=== PATIENT | male | born 1965 | race Two or more races ===

== ENCOUNTER 2016-11-10 04:15 | Emergency (ER) | payer MEDICAID ==
[~2016-11-10] VITALS: Ht 170.2 cm; Wt 83.9 kg
[2016-11-10] MEDS ORDERED: UNOBMED (04:18)
[2016-11-10 04:22] VITALS: BP 111/66
--- NOTE | 2016-11-10 04:23 | Emergency Room Report ---
History of Present Illness General Chief Complaint: Alcohol Intoxication Source: Patient, EMS Present Illness HPI Patient was brought in by paramedics for altered mental status [place] essentially unresponsive and sleeping heavily Patient himself is unable to provide any input Fairly somnolent Responsive to physical stimuli by moaning however not verbally responsive No reports of any trauma at the scene as far as any blood or other trauma In the history of present illness remains significantly limited Allergies: Coded Allergies: UNABLE TO ASSESS (Unverified , 11/10/16) Patient History Limited by: medical condition Past Medical History: see triage record Pertinent Family History: none Reviewed Nursing Documentation: PMH: Agreed, PSxH: Agreed Nursing Documentation-PMH Past Medical History Deferred: Pt Cognitively Impaired Review of Systems All Other Systems: limited - Other than the ones mentioned in the history of present illness all others are reviewed however they do stay limited due to the patient's mental status Physical Exam Vital Signs Date Time Temp Pulse Resp B/P Pulse Ox O2 Delivery O2 Flow Rate FiO2 11/10/16 04:12 99.1 69 14 111/66 97 Room Air Sp02 EP Interpretation: reviewed, normal General Appearance: no apparent distress Head: normocephalic, atraumatic Eyes: bilateral eye EOMI, bilateral eye PERRL ENT: hearing grossly normal, normal pharynx, TMs + canals normal, uvula midline Neck: full range of motion, supple, no meningismus, no bony tend Respiratory: lungs clear, normal breath sounds, no rhonchi, no respiratory distress, no retraction, no accessory muscle use Cardiovascular #1: normal peripheral pulses, regular rate, rhythm, no edema, no gallop, no JVD, no murmur Gastrointestinal: normal bowel sounds, non tender, soft, no mass, no organomegaly, non-distended, no guarding, no hernia, no pulsatile mass, no rebound Genitourinary: no CVA tenderness Musculoskeletal: other - Patient does not follow commands, does withdraw from physical stimuli Neurologic: responsive, sensory intact Psychiatric: mood/affect normal Skin: normal color, no rash, warm/dry, palpation normal Lymphatic: normal inspection, no adenopathy Medical Decision Making Diagnostic Impression: Primary Impression: Alcohol abuse ER Course Patient did well throughout his stay in the emergency room rested comfortably there was no signs of any active nausea or vomiting Further IV intervention was not performed CT head was obtained as the patient had been initially altered Which was negative and the patient pending further sobering and dc home when more appropriate CT/MRI/US Diagnostic Results CT/MRI/US Diagnostic Results : Impression CT head: no acute disease Last Vital Signs Date Time Temp Pulse Resp B/P Pulse Ox O2 Delivery O2 Flow Rate FiO2 11/10/16 04:12 99.1 69 14 111/66 97 Room Air Status: improved Disposition: HOME, SELF-CARE Condition: Improved Additional Instructions: Patient is provided with the discharge instructions notified to follow up with primary doctor in the next 2-3 days otherwise return to the er with any worsening symptoms. LICO VALLEJO D.O. Nov 10, 2016 04:23
[2016-11-10 06:25] VITALS: BP 115/64
--- NOTE | 2016-11-10 09:15 | Diagnostic Imaging Report ---
Indication: Altered mental status Technique: Continuous helical CT scanning of the head was performed without intravenous contrast material. Axial and coronal 5 mm sections were generated. Radiation dose was minimized using automated exposure control Dose: Total Dose Length Product - DLP [address] Dose Index - CTDIvol(s) 70.38 mGy. Comparison: None Findings: The ventricular system is normal in size and configuration. There is no shift of midline structures. No abnormal extra-axial fluid collections are noted. There is no evidence of intracerebral bleeding. No other abnormal high or low density areas are noted within the brain. There is bilateral maxillary sinus mucosal disease evidence of left optic globe and right cataract surgery. Impression: Negative for acute intracranial bleed or mass effect Sinus disease This agrees with the preliminary interpretation provided overnight by [facility]. The CT scanner at [facility] is accredited by the [employer] and the scans are performed using protocols designed to limit radiation exposure to as low as reasonably achievable to attain images of sufficient resolution adequate for diagnostic evaluation.
[2016-11-10 10:08] VITALS: BP 114/62
[2016-11-10 10:13] VITALS: BP 114/62
== END 2016-11-10 10:22 | disposition home or self-care (01) ==
LOC: EDBD 04:15 → EMR 04:25
DX: F10.10 Alcohol abuse, uncomplicated (principal); R41.82 Altered mental status, unspecified; J32.0 Chronic maxillary sinusitis
CPT/HCPCS: 70450; 99284